=== PATIENT | female | born 1995 | race African-American/Black ===

== ENCOUNTER 2020-09-13 08:07 | Day surgery (SDC) | payer OTHER ==
[2020-09-13] MEDS ORDERED: CEFAZOLIN/SWI 1gm 1 GM/10 ML SYR ONE (08:39)
[2020-09-13] MEDS ORDERED: SCOPOLAMINE HYDROBROMIDE PATCH TD ONE ×2 (08:39→08:57)
[2020-09-13] MEDS ORDERED: Ringers Lactate 1,000 ML IV ONE ×2 (08:39→08:41)
[2020-09-13] MEDS ORDERED: CEFAZOLIN SODIUM 1 GM/VIAL ONE ×2 (08:40→13:07)
[2020-09-13] MEDS ORDERED: NS 0.9% VIAL 40 ML ONE (08:40)
[2020-09-13] MEDS ORDERED: LIDOCAINE 1% W/EPI 1:100,000 MDV 20 ML VIAL ONE (08:40)
[2020-09-13] MEDS ORDERED: GENTAMICIN SULF 80 MG/2ML INJ ONE (08:40)
[2020-09-13] MEDS ORDERED: Mastisol Adhesive Liq ONE (08:41)
[2020-09-13] MEDS ORDERED: BACITRACIN 50000 UNIT VIAL ONE (08:41)
--- NOTE | 2020-09-13 08:48 | RAD REPORT ---
EXAM DESCRIPTION: RAD - Chest Pa And Lat (2 Views) - 09/13/2020 8:08 am CLINICAL HISTORY: Preop, history of Covid COMPARISON: None. TECHNIQUE: PA and lateral views of the chest were obtained. FINDINGS: The lungs are clear. Heart size is normal and central vasculature is within normal limits. No pleural effusion or pneumothorax seen. No acute bony finding noted. IMPRESSION: No acute cardiopulmonary process.
[2020-09-13] MEDS ORDERED: KETOROLAC 30 MG/ML INJ ONE (08:52)
[2020-09-13] MEDS ORDERED: dexAMETHasone 10 MG/ML VIAL ONE (08:52)
[2020-09-13] MEDS ORDERED: LIDOCAINE 2% MPF 5 ML VIAL ONE (08:52)
[2020-09-13] MEDS ORDERED: propofoL 200 MG/20 ML VIAL IV ONE (08:52)
[2020-09-13] MEDS ORDERED: Phenylephrine HCl 10 MG/ML 1 ML VIAL ONE (08:52)
[2020-09-13] MEDS ORDERED: MIDAZOLAM HCL 2 MG/2 ML INJ ONE (08:52)
[2020-09-13] MEDS ORDERED: ROCURONIUM 50 MG/5 ML VIAL IV ONE (08:53)
[2020-09-13] MEDS ORDERED: VECURONIUM 10 MG/VIAL IV ONE ×2 (08:53→13:07)
[2020-09-13] MEDS ORDERED: NS 0.9% VIAL 10 ML ONE ×2 (08:53→14:01)
[2020-09-13] MEDS ORDERED: FENTANYL CITR 250 MCG/5 ML ONE (08:53)
[2020-09-13] MEDS ORDERED: ONDANSETRON 4 MG/2 ML VIAL ONE (08:53)
[2020-09-13] MEDS ORDERED: NS 0.9% VIAL 20 ML ONE (13:07)
[2020-09-13] MEDS ORDERED: MORPHINE 10 MG/ML VIAL ONE (14:01)
[2020-09-13] MEDS: HYDROMORPHONE HCL 1 MG/ML INJ ONE ×2 (14:58→15:03)
[2020-09-13 15:27] VITALS: O2SAT 100
[2020-09-13] MEDS ORDERED: HYDROCODONE/APAP 10/325 TAB ONE (15:40)
[2020-09-13 16:57] VITALS: BP 102/61; TEMP 97.7
--- NOTE | 2020-09-13 22:48 | OP ---
Surgeon: Fausto Mcgrath MD Preoperative Diagnosis: Breast descent. Postoperative Diagnosis: Breast descent. Procedure Performed: Breast lift. Anesthesia: General. Operative Note: After satisfactory induction of general anesthesia, the right and left chest were pr epped with DuraPrep and dry sterile drapes applied in the usual manner. A 45 mm template was used to outline the right and left areolas. Then transverse curvilinear incisions were made . I ntervening skin was de-epithelialized with a dermabrader. After this was done on both sides, then we returned to the right side. Scalpel was used to make a transverse incision. Then, flap was thinned to approximately 1 cm thickness, elevated towards the sternum, clavicle, anterior axillary line. Th en inferior incision was made. The patient had excess breast tissue laterally. This was excised wit h a scalpel. Electrocautery was used for hemostasis. Conization was performed with 2-0 PDS suture. Then straps were elevated at 12 o'clock, 1:30 and 3 o'clock position. The straps were woven in and out of the pectoralis muscle back to base of cone back pectoralis muscle back to base of the cone, ti ed to themselves with 2-0 PDS suture. This was done for the 12 o'clock, 1:30 strap. 3 o'clock strap was sewn over the sternum at 3 o'clock position with 2-0 Ethibond. Mirror image was done on the opp osite side. We then returned to the right side. Irrigated the wound with antibiotic solution. 10 J P brought out of the axilla, sewn in place with 2-0 silk. Wound was closed in layers with 3-0 Vicryl subcutaneous, 3-0 PDS running subcuticular tied from medial to lateral, lateral to medial tied in th e vertical meridian of the breast. Left side was done in the identical manner. The patient was sat up site for new nipple-areolar complex marked out, returned supine, tissue cored out with a 45 templa te and then the wound was closed with interrupted 4-0 PDS followed by 4-0 PDS running subcuticular. Dressings consisted of tincture of benzoin, Steri-Strips, followed by Esmarch, fluffs, and Waylon wrap. The patient tolerated procedure well, returned to Recovery. /MODL Voice ID: [id number] Report ID: [id number]
== END 2020-09-13 16:40 | disposition home or self-care (01) ==
LOC: OR 08:07
PROVIDERS: ATTEND Specialist
PROC: 0HSV0ZZ Reposition Bilateral Breast, Open Approach (ICD-10-PCS; principal; 2020-09-13 09:00)
DX: N64.81 Ptosis of breast (principal); Z20.822 Contact with and (suspected) exposure to COVID-19
CPT/HCPCS: 71046; 81025; 88305; J0690; J1100; J1170; J1580; J2250; J2370; J2405; J2704; J3010; J7120; U0003